=== PATIENT | male | born 1980 | race Hispanic/Latino ===

== ENCOUNTER 2017-05-13 12:24 | Inpatient (IN) | payer OTHER ==
[2017-05-13 13:16] LABS: Bacteria,Urine 1+ /HPF (Negative); Bilirubin,Urine NEG (Negative); Blood,Urine NEG (Negative); Ketones,Urine NEG (Negative); Leukocyte Esterase,Urine NEG (Negative); Mucus,Urine FEW /HPF; Nitrite,Urine NEG (Negative); Protein,Urine <15 mg/dL mg/dL (Negative); Urobilinogen,Urine < 2.0 mg/dL (<2.0)
--- NOTE | 2017-05-13 13:54 | Ultrasound Report ---
Testicular sonogram: History: Right-sided pain and mass. Findings: Right testis measures 4.8 x 2.2 x 3.6 cm. Uniform echogenicity with normal color flow. Normal epididymis. The testis and epididymis is displaced medially by the large mass in the lateral aspect of the testes extending to the inguinal region. There is no fluid noted in the scrotal sac. Left testis measures 4.9 x 2.3 x 3 cm. Uniform echogenicity normal color-flow. Normal left epididymis. Impression: There is no peristalsis identified within the mass extending to the inguinal region on the right side and displacing the right testis to the left. The possibility of large right inguinal scrotal hernia should be considered first. Soft tissue mass cannot be entirely ruled out. Clinical correlation and if necessary CT scan of pelvis including upper thigh may be recommended for further evaluation.
[2017-05-13] MEDS ORDERED: NACL 0.9% 1000 ML 1,000 ML IV ONE ×2 (14:26→17:34)
--- NOTE | 2017-05-13 14:27 | Emergency Department Report ---
ED Male HPI - General Chief complaint: Urogenital-Male Stated complaint: HERNIA Time Seen by Provider: 05/13/17 14:24 Source: patient Mode of arrival: Ambulatory Limitations: No Limitations - History of Present Illness Initial comments: 36-year-old male past medical history inguinal hernia presents with complaint of worsened right sided groin/scrotal pain since last night. Patient states that he was moving around equipment at work when he felt a sudden sharp pain in his right side scrotum or testicle. Patient states that overnight pain and swelling intensified. Patient now presents with intense pain and swelling in the right scrotal region. MD Complaint: testicle pain, hernia, groin pain Location: left testicle Severity: mild Severity scale (0 -10): 5 Quality: sharp Consistency: constant Improves with: none Worsens with: none - Related Data Home Medications Medication Instructions Recorded Confirmed Last Taken No Known Home Medications [No 05/13/17 05/13/17 Unknown Reported Home Medications] Allergies Allergy/AdvReac Type Severity Reaction Status Date / Time No Known Allergies Allergy Unverified 05/13/17 12:30 ED Review of Systems ROS: Stated complaint: HERNIA Other details as noted in HPI Constitutional: denies: chills, fever Eyes: denies: eye pain, eye discharge, vision change ENT: denies: ear pain, throat pain Respiratory: denies: cough, shortness of breath, wheezing Cardiovascular: denies: chest pain, palpitations Endocrine: no symptoms reported Gastrointestinal: denies: abdominal pain, nausea, diarrhea Genitourinary: denies: urgency, dysuria Musculoskeletal: denies: back pain, joint swelling, arthralgia Skin: denies: rash, lesions Neurological: denies: headache, weakness, paresthesias Psychiatric: denies: anxiety, depression Hematological/Lymphatic: denies: easy bleeding, easy bruising ED Past Medical Hx - Past Medical History Previous Medical History?: No - Surgical History Hx Appendectomy: Yes - Social History Smoking Status: Current Every Day Smoker Substance Use Type: Alcohol, Marijuana - Medications Home Medications: Home Medications Medication Instructions Recorded Confirmed Last Taken Type No Known Home Medications [No 05/13/17 05/13/17 Unknown History Reported Home Medications] ED Physical Exam - General Limitations: No Limitations General appearance: alert, in no apparent distress - Head Head exam: Present: atraumatic, normocephalic - Eye Eye exam: Present: normal appearance, PERRL, EOMI - ENT ENT exam: Present: mucous membranes moist - Neck Neck exam: Present: normal inspection - Respiratory Respiratory exam: Present: normal lung sounds bilaterally. Absent: respiratory distress - Cardiovascular Cardiovascular Exam: Present: regular rate, normal rhythm. Absent: systolic murmur, diastolic murmur, rubs, gallop - GI/Abdominal GI/Abdominal exam: Present: soft, normal bowel sounds - Rectal Rectal exam: Present: deferred - exam: Present: testicular tenderness, scrotal swelling External exam: Present: swelling - Extremities Exam Extremities exam: Present: normal inspection, full ROM - Back Exam Back exam: Present: normal inspection - Neurological Exam Neurological exam: Present: alert, oriented X3, CN II-XII intact, abnormal gait (antalgic gait) - Psychiatric Psychiatric exam: Present: normal affect, normal mood - Skin Skin exam: Present: warm, dry, intact, normal color. Absent: rash ED Course Vital Signs 05/13/17 05/13/17 05/13/17 12:32 16:55 18:00 Temperature 98.0 F Pulse Rate 54 L Respiratory 18 16 20 Rate Blood Pressure 106/68 O2 Sat by Pulse 98 Oximetry 05/13/17 18:30 Temperature Pulse Rate Respiratory 18 Rate Blood Pressure O2 Sat by Pulse Oximetry ED Medical Decision Making - Lab Data Result diagrams: 05/13/17 14:49 05/13/17 14:49 - Medical Decision Making A/P: Incarcerated right inguinal hernia 1-CT scan performed based on clinical suspicion of significant hernia, CT scan consistent with right incarcerated inguinal hernia 2-case discussed with Dr. Nunes who also examined the patient 3-case discussed with on-call surgical attending , based on clinical exam and patient's symptoms Dr. Leblanc will take patient to the operating room for reduction of inguinal hernia 4- patient informed of current clinicals and arterial and in agreement with current plan Critical care attestation.: If time is entered above; I have spent that time in minutes in the direct care of this critically ill patient, excluding procedure time. ED Disposition Clinical Impression: Incarcerated right inguinal hernia Disposition: DC-01 TO HOME OR SELFCARE Is pt being admited?: Yes Does the pt Need Aspirin: No Condition: Stable Referrals: PRIMARY CARE,MD [Primary Care Provider] - 3-5 Days
[2017-05-13 15:25] LABS: Anion Gap 18 mmol/L; BUN/Creatinine Ratio 16.66; Blood Urea Nitrogen 10 mg/dL (9-20); Calcium 9.5 mg/dL (8.4-10.2); Carbon Dioxide 26 mmol/L (22-30); Chloride 97.7 mmol/L (98-107); Glucose 82 mg/dL (75-100); Potassium 3.9 mmol/L (3.6-5.0); Sodium 138 mmol/L (137-145)
[2017-05-13 15:50] LABS: Basophils % (Auto) 0.4 % (0.0-1.8); Eosinophils % (Auto) 1.5 % (0.0-4.3); Hemoglobin 16.5 gm/dl (11.8-15.2); Mean Corpuscular HGB Conc 34 % (32-34); Mean Corpuscular Hemoglobin 31 pg (28-32); Mean Corpuscular Volume 90 fl (84-94); Platelet Count 244 K/mm3 (140-440); Red Blood Count 5.35 M/mm3 (3.65-5.03); Red Cell Distribution Width 14.9 % (13.2-15.2); White Blood Count 10.4 K/mm3 (4.5-11.0)
[2017-05-13] MEDS ORDERED: NACL ONE (16:37)
[2017-05-13] MEDS ORDERED: MORPHINE IV ONE ×2 (16:40→17:50)
[2017-05-13] MEDS ORDERED: ZOFRAN IV ONE (16:40)
[2017-05-13] MEDS ORDERED: ZOFRAN ONE ×2 (16:44→22:26)
[2017-05-13] MEDS ORDERED: MORPHINE ONE ×2 (16:45→17:23)
--- NOTE | 2017-05-13 17:26 | Cat Scan Report ---
FINAL REPORT PROCEDURE: CT ABDOMEN PELVIS W CON TECHNIQUE: Computerized axial tomography of the abdomen and pelvis was performed after the IV injection of iodinated nonionic contrast. HISTORY: LARGE right inguinal hernia ? strangulated COMPARISON: No prior studies are available for comparison. FINDINGS: Liver, spleen, pancreas and adrenal glands are within normal limits. Bilateral kidneys are normal in density without calculi or hydronephrosis. Aorta is of normal caliber. There is no free fluid or free air. Gallbladder is unremarkable. Small bowel loops are within normal limits. Mild to moderate degree residual stool is noted in the colon. There is a large right inguinal hernia containing greater omentum and a portion of the transverse colon. It measures 11 x 9 centimeters in transverse and AP dimensions. There is a induration of the fat and luminal narrowing of the colon at the hernia neck. Appendix is not distinctly visualized. There are no inflammatory changes in the right lower quadrant. IMPRESSION: Large incarcerated right inguinal hernia containing a loop of transverse colon and greater omentum.
[2017-05-13] MEDS ORDERED: DILAUDID IV ONE (17:43)
[2017-05-13] MEDS ORDERED: ZOSYN/NS 4.5GM/100ML 4.5 GM/100 ML VIAL IV ONE (17:56)
--- NOTE | 2017-05-13 19:10 | History and Physical Report ---
History of Present Illness Date of examination: 05/13/17 Date of admission: 05/13/17 Chief complaint: right groin pain, hernia History of present illness: 6-year-old male with no past medical history presents to the emergency room with complaints of acute onset right groin pain after lifting something heavy today at work. He states that he has noticed that his groin will swell at times but this improves on its own and he was able to reduce the swelling. However today he was lifting heavy materials and heard a pop in his right groin and had tenderness and swelling that did not resolve. He denies any fevers or chills, chest pain, shortness of breath, abdominal pain. He has been tolerating regular diet, and last ate at 7 AM this morning. He's been having normal bowel function and flatus. He denies nausea, vomiting. He is visiting here from [place]. Past History Past Medical History: No medical history Past Surgical History: appendectomy (open) Social history: smoking (5 cigarettes per day, marijuana), alcohol abuse ( occassional ), full code. denies: IV drug use Family history: cancer Medications and Allergies Allergies Allergy/AdvReac Type Severity Reaction Status Date / Time No Known Allergies Allergy Unverified 05/13/17 12:30 Home Medications Medication Instructions Recorded Confirmed Last Taken Type No Known Home Medications [No 05/13/17 05/13/17 Unknown History Reported Home Medications] Review of Systems All systems: negative (see hpi) Exam Vital Signs Temp Pulse Resp BP Pulse Ox 98.0 F 54 L 18 106/68 98 05/13/17 12:32 05/13/17 12:32 05/13/17 12:32 05/13/17 12:32 05/13/17 12:32 Narrative exam: General: Awake alert and oriented 3. Mild painful distress CV: S1-S2 positive Resp: No audible wheezes Abdomen: Soft, nontender, nondistended. There is a well-healed right lower quadrant scar. There is a large right inguinoscrotal hernia, incarcerated. There are no skin changes. Extremities: No clubbing, cyanosis, edema Results - Labs 05/13/17 14:49 05/13/17 14:49 Abnormal lab results 05/13/17 05/13/17 05/13/17 Range/Units 14:49 14:49 Unknown RBC 5.35 H (3.65-5.03) M/mm3 Hgb 16.5 H (11.8-15.2) gm/dl Hct 48.0 H (35.5-45.6) % Seg Neutrophils % 70.3 H (40.0-70.0) % Chloride 97.7 L (98-107) mmol/L Creatinine 0.6 L (0.8-1.5) mg/dL Urine WBC (Auto) 8.0 H (0.0-6.0) /HPF Diabetes panel 05/13/17 Range/Units 14:49 Sodium 138 (137-145) mmol/L Potassium 3.9 (3.6-5.0) mmol/L Chloride 97.7 L (98-107) mmol/L Carbon Dioxide 26 (22-30) mmol/L BUN 10 (9-20) mg/dL Creatinine 0.6 L (0.8-1.5) mg/dL Glucose 82 (75-100) mg/dL Calcium 9.5 (8.4-10.2) mg/dL Calcium panel 05/13/17 Range/Units 14:49 Calcium 9.5 (8.4-10.2) mg/dL Pituitary panel 05/13/17 Range/Units 14:49 Sodium 138 (137-145) mmol/L Potassium 3.9 (3.6-5.0) mmol/L Chloride 97.7 L (98-107) mmol/L Carbon Dioxide 26 (22-30) mmol/L BUN 10 (9-20) mg/dL Creatinine 0.6 L (0.8-1.5) mg/dL Glucose 82 (75-100) mg/dL Calcium 9.5 (8.4-10.2) mg/dL Adrenal panel 05/13/17 Range/Units 14:49 Sodium 138 (137-145) mmol/L Potassium 3.9 (3.6-5.0) mmol/L Chloride 97.7 L (98-107) mmol/L Carbon Dioxide 26 (22-30) mmol/L BUN 10 (9-20) mg/dL Creatinine 0.6 L (0.8-1.5) mg/dL Glucose 82 (75-100) mg/dL Calcium 9.5 (8.4-10.2) mg/dL - Imaging CT scan - abdomen: report reviewed, image reviewed CT scan - pelvis: report reviewed, image reviewed (Inguinoscrotal hernia on the right containing transverse colon and omentum) Additional studies: testicular ultrasound Assessment and Plan 36-year-old male with an incarcerated right inguinoscrotal hernia 1. NPO 2. IVF 3. received zosyn in ED 4. will plan to take to OR and reduce and repair hernia. 5. pain control 6. consent signed and on chart - patient understands all risks and benefits of surgery
[2017-05-13] MEDS ORDERED: DILAUDID ONE ×2 (19:52→22:49)
[2017-05-13] MEDS ORDERED: DIPRIVAN 10 MG/ML IV ONE (19:52)
[2017-05-13] MEDS ORDERED: ZEMURON IV ONE (19:56)
[2017-05-13] MEDS ORDERED: QUELICIN ONE (19:56)
[2017-05-13] MEDS ORDERED: XYLOCAINE MPF 2% ONE (19:56)
--- NOTE | 2017-05-13 19:59 | Anesthesia Consultation ---
Anesthesia Consult and Med Hx Date of service: 05/13/17 - Airway Anesthetic Teeth Evaluation: Poor ROM Head & Neck: Adequate Mental/Hyoid Distance: Adequate Mallampati Class: Class II Intubation Access Assessment: Probably Good - Pulmonary Exam CTA: Yes - Cardiac Exam Cardiac Exam: RRR - Pre-Operative Health Status ASA Pre-Surgery Classification: ASA2 Proposed Anesthetic Plan: General - Pulmonary Hx Smoking: Yes (Has cut back to 1/2 PPD)
[2017-05-13] MEDS ORDERED: ZOFRAN IV PRN (20:00)
[2017-05-13] MEDS ORDERED: PERCOCET 5/325 PO PRN (20:00)
--- NOTE | 2017-05-13 20:00 | Anesthesia Day of Surgery ---
Anesthesia Day of Surgery - Day of Surgery Patient Examined: Yes Patient H&P Reviewed: Yes Patient is NPO: Yes
[2017-05-13] MEDS ORDERED: MARCAINE 0.25% INFILTRATI ONE ×2 (20:27→20:30)
[2017-05-13] MEDS ORDERED: XYLOCAINE 1% 20 mL INFILTRATI ONE (20:27)
[2017-05-13] MEDS ORDERED: ROBINUL ONE ×2 (20:30→22:25)
[2017-05-13] MEDS ORDERED: XYLOCAINE 1% 20 mL ONE (20:30)
[2017-05-13] MEDS ORDERED: LACTATED RINGERS 1,000 ML ONE (20:30)
[2017-05-13] MEDS ORDERED: NEOSTIGMINE ONE (22:25)
[2017-05-13] MEDS ORDERED: TORADOL ONE (22:26)
[2017-05-13] MEDS: DILAUDID IV PRN ×2 (22:48→23:15)
--- NOTE | 2017-05-13 22:52 | Post Operative Note ---
Pre-op diagnosis: incarcerated right inguinal hernia Post-op diagnosis: same Findings: large incarcerated indirect hernia containing omentum, repaired with large plug and patch Procedure: open right inguinal hernia repair with mesh Anesthesia: DONITAA, local Surgeon: WINNIE MOY Estimated blood loss: minimal Pathology: none Condition: stable Disposition: PACU
--- NOTE | 2017-05-13 22:59 | Operative Report ---
Operative Report Operative Report: Date of service: 05/13/17 Preoperative diagnosis: Incarcerated right inguinal hernia Postoperative diagnosis: Same as preop Procedure performed: Open right inguinal hernia repair with mesh Surgeon: Earnestine Jennings D.O Anesthesia: Gen. endotracheal anesthesia Findings: Large indirect right inguinal hernia with incarcerated omentum Specimen: None EBL: Minimal Complications: None Patient disposition and condition: Able to PACU HPI an indication: The patient is a 36-year-old male who presented to the hospital with sudden onset right groin pain. He was found to have an incarcerated right inguinal scrotal hernia on physical exam, which was confirmed with CT scan showing transverse colon and omentum in the hernia. The hernia was unable to be fully reduced and therefore the patient was taken to the operating room. All risks and benefits were discussed with the patient and the patient was in agreement to proceed to inguinal hernia repair with mesh. Consent was signed and placed on chart. Procedure in detail: Patient was identified in the preoperative area and taken back to the operating room and placed on the operating room table in supine position. After anesthesia was induced the lower abdomen and groin was prepped in the usual sterile fashion. A timeout was performed. The hernia was reduced fully. Local anesthetic, quarter percent Marcaine +1% lidocaine, was injected into the skin and subcutaneous tissues at the intended incision site. An oblique incision was made with a 10 blade in the right groin between the pubic tubercle and ASIS. The dissection was carried down through the skin and subcutaneous tissue using Bovie electrocautery. Once the external oblique fascia was encountered, it was opened carefully using Metzenbaum scissors. The ilioinguinal nerve was identified and protected. The cord structures were bluntly dissected from the surrounding structures and carefully encircled with a Wilson drain. An large in direct hernia was found with a chronic hernia sac , with incarcerated omentum. The hernia sac along with its contents was carefully dissected from the cord structures and reduced. A large plug and patch mesh was used to repair the defect and was cut to accommodate the cord structures. The plug was placed into the deep ring and sutured in place to the shelving edge of the inguinal ligament with 2-0 PDS. The patch was sewn into place as a 2-0 PDS to the pubic tubercle, shelving edge of the inguinal ligament , and transversalis muscle. The 2 flaps of the patch were sutured together using 2-0 PDS and tucked underneath the external oblique fascia. The surgical field was irrigated and hemostasis achieved. The cord structures were placed in anatomic position. The external oblique fascia was closed using 2-0 Vicryl running stitch. The subcutaneous tissue was then irrigated and hemostasis achieved. Sulma's fascia was closed using interrupted 3-0 Vicryl stitches. The skin was closed using a 4-0 Monocryl running subcuticular stitch and skin glue. The scrotum was examined and both testicles are patent. At the end of the case all sponge, instrument, and sharp counts were correct 2. The patient was awoken from anesthesia and extubated. The patient was taken to PACU in stable condition.
[2017-05-14] MEDS ORDERED: D5W/0.45% NACL/KCL 20 MEQ 20 MEQ/1,000 ML BAG IV SCH (00:40)
[2017-05-14] MEDS ORDERED: PERCOCET 5/325 PO PRN (00:40)
[2017-05-14] MEDS ORDERED: ZOFRAN IV PRN (00:40)
[2017-05-14] MEDS ORDERED: MILK OF MAGNESIA PO PRN (00:40)
[2017-05-14] MEDS ORDERED: MORPHINE IV PRN (00:40)
[2017-05-14] MEDS ORDERED: TYLENOL PO PRN (00:40)
[2017-05-14] MEDS ORDERED: DULCOLAX PR PRN (00:40)
--- NOTE | 2017-05-14 09:18 | Discharge Summary ---
Providers - Providers Date of Admission: 05/13/17 23:17 Date of discharge: 05/14/17 Attending physician: WINNIE MOY DO Primary care physician: TELEPHONE INTERVIEWER Hospitalization Reason for admission: incarcerated right inguinal hernia Condition: Good Pertinent studies: Ct A/P and testicular ultrasound Procedures: open repair of incarcerated right inguinal hernia with mesh Hospital course: 36-year-old male presented to the emergency room with complaints of acute onset right groin pain and was found to have an incarcerated right inguinal hernia. He was taken to the operating room for a open right inguinal hernia repair with mesh. His postoperative course was uncomplicated. He was discharged home on postoperative day 1 in stable condition. He was ambulating, eating a regular diet, and pain was controlled. Disposition: - TO HOME OR SELFCARE Time spent for discharge: 30 minutes - Discharge Diagnoses (1) Incarcerated right inguinal hernia Status: Acute Core Measure Documentation - Palliative Care Palliative Care/ Comfort Measures: Not Applicable - Core Measures Any of the following diagnoses?: none Exam - Physical Exam Narrative exam: Gen: AAOx3. NAD CV: S1, S2+ Resp: No audible wheezes Abd: soft, NT, right groin incision c/d/i Ext: No c/c/e - Constitutional Vitals: Temp Pulse Resp BP Pulse Ox 98.5 F 65 20 102/57 97 05/14/17 07:35 05/14/17 07:35 05/14/17 07:35 05/14/17 07:35 05/14/17 08:20 Plan Activity: other (do not drive all taking narcotic pain medication. No heavy lifting, greater than 15 pounds for the next 4-6 weeks.) Diet: regular Wound: open to air, keep clean and dry, other (May shower with soap and water. Pat wound dry, do not scrub. Skin glue on incision will fall off on own. Do not submerge incision in bath, hot tub, pools until healed.) Special Instructions: smoking cessation, no heavy lifting Follow up with: PRIMARY CARE, [Primary Care Provider] - 3-5 Days WINNIE MOY DO [Staff Physician] - 7 Days Prescriptions: oxyCODONE /ACETAMINOPHEN [Percocet 5/325 mg] 1 tab PO Q6H PRN #15 tablet PRN Reason: Pain, Moderate (4-6)
[2017-05-14 12:10] VITALS: BP 104/60
== END 2017-05-14 14:25 | disposition home or self-care (01) | DRG 352 ==
LOC: ED 12:24 → OR 23:14 → 3B-SURG 23:17
PROVIDERS: ADMIT Surgery; ATTEND Surgery
PROC: 0YU50JZ Supplement Right Inguinal Region with Synthetic Substitute, Open Approach (ICD-10-PCS; principal; 2017-05-13)
DX: K40.30 Unilateral inguinal hernia, with obstruction, without gangrene, not specified as recurrent (principal); Z90.49 Acquired absence of other specified parts of digestive tract; Z80.9 Family history of malignant neoplasm, unspecified; F17.210 Nicotine dependence, cigarettes, uncomplicated
CPT/HCPCS: 36415; 74177; 80048; 81001; 82140; 85025; 85610; 85730; 86850; 86900; 86901; 93975; 96361; 96365; 96375; 96376; C1781; J0330; J1170; J1885; J2270; J2405; J2543; J2704; J2710; J7030; J7120; Q9967